=== PATIENT | male | born 1945 | race Two or more races ===

== ENCOUNTER 2016-08-14 12:45 | Inpatient (IN) | payer OTHER, MEDICAID ==
[~2016-08-14] VITALS: Ht 175.3 cm; Wt 101.2 kg
[2016-08-14 15:30] VITALS: BP 137/72
--- NOTE | 2016-08-14 15:45 | NUR ---
system developer associate manager Initial notes Admitted a 71 years old male patient from [facility] admit, patient came in due to hypoglycemia and PNA. Alert and Oriented x 4, verbally responsive and able to make needs known. IV on the right wrist and AC #20. On tele monitor a flutter heart rate of 75, no complaint of pain or discomfort at this time. Pictures taken and filed in the chart, skin assessment done. Informed Dr. Cheney regarding admission and orders filed in the chart. Vital signs checked and recorded. Kept patient clean and comfortable in bed, call light with in patient reach, will continue to monitor accordingly.
[2016-08-14 16:00] VITALS: BP 137/72
[2016-08-14] MEDS ORDERED: Z GUARD REMEDY 2 OZ OINT TP PRN (16:30)
[2016-08-14] MEDS ORDERED: ACETAMINOPHEN 325 MG TABLET PO PRN (16:30)
[2016-08-14] MEDS ORDERED: ZOLPIDEM TARTRATE 5 MG TABLET PO PRN (16:30)
[2016-08-14] MEDS ORDERED: ONDANSETRON HCL/PF 4 MG/2 ML VIAL IVP PRN (16:30)
[2016-08-14] MEDS ORDERED: CEFTRIAXONE 1 G in IV D5W 50 ML IV SCH (17:00)
[2016-08-14] MEDS ORDERED: AZITHROMYCIN 250 MG TABLET PO SCH (17:00)
[2016-08-14] MEDS ORDERED: DEXTROSE 50%-WATER 50 ML DISP.SYRIN IV PRN (17:30)
[2016-08-14] MEDS ORDERED: IV SET PRIMARY PUMP SET 1 EA INFUS.SET MC ONE (17:31)
[2016-08-14] MEDS ORDERED: SECONDARY IV SET 1 EA INFUS.SET MC ONE (17:33)
[2016-08-14] MEDS: IV NS 0.9% 1,000 ML IV PRN (17:37)
[2016-08-14] MEDS ORDERED: DIGO125T PO (17:43)
[2016-08-14] MEDS ORDERED: BACL10TA PO (17:43)
[2016-08-14] MEDS ORDERED: CARV6.252 PO (17:43)
[2016-08-14] MEDS ORDERED: WARF5TAB6 PO (17:43)
[2016-08-14] MEDS ORDERED: METF500T4 PO (17:43)
[2016-08-14] MEDS ORDERED: CILO100T PO (17:43)
[2016-08-14] MEDS ORDERED: GLIM2TAB2 PO (17:43)
[2016-08-14] MEDS ORDERED: GABA-534 PO (17:43)
[2016-08-14] MEDS ORDERED: ALBU8.5H2 IH (17:43)
[2016-08-14] MEDS ORDERED: PANT40TA4 PO (17:43)
[2016-08-14] MEDS ORDERED: TRAZ-144 PO (17:43)
[2016-08-14] MEDS ORDERED: CLOP75TA2 PO (17:43)
[2016-08-14] MEDS ORDERED: SIMV40TA5 PO (17:43)
[2016-08-14] MEDS ORDERED: LISI40TA4 PO (17:43)
[2016-08-14] MEDS ORDERED: FURO40TA5 PO (17:43)
[2016-08-14] MEDS: BLOOD SUGAR DIAGNOSTIC 1 EACH STRIP IN SCH ×2 (18:01→21:10)
--- NOTE | 2016-08-14 19:21 | NUR ---
electrical electronics engineer closing notes All needs provided, attended, and anticipated. kept patient clean and comfortable in bed, call light with in patient reach, will continue to monitor accordingly. Endorsed to next shift RN to continue care. On tele monitor Aflutter heart rate of 96.
[2016-08-14 20:00] VITALS: BP 155/66
--- NOTE | 2016-08-14 20:23 | NUR ---
MS/RN OPENING NOTES PATIENT IN BED, ALERT, ORIENTED X2. VERBALIZE NEEDS. REQUIRE ASSISTANCE AND FREQUENT MONITORING. PROVIDED WARM BLANKET AND KEPT RIOOM WARM AND DISCUSSED NEEDS FOR HOSPITALIZATION. WILL CONTINUE MONITORING.
--- NOTE | 2016-08-14 21:11 | NUR ---
MS/RN NOTES PATIENT WAS DISCUSSED REGARDING CARE AND BS CHECK AT 148. INFORMED THAT HE WILL HAVE ATB MEDICATIONS FOR HIS TREATMENT FOR PNA AND MD WILL COME AND SEE HIM RACH AM BUT STILL VERBALIZED " I WANT TO GO HOME AMS". INFORMED THE MATTER TO CHARGE NURSE . WILL CALL MD.
--- NOTE | 2016-08-14 21:20 | NUR ---
MS/RN NOTES PATIENT FAMILY WAS CONTACTED VIA VOICE MAIL LEFT MESSAGE FOR THEM TO RETURN CALL REGARDING PATIENT CONCERN. ([employer]([phone]) AND LYNETTE Dunham [phone]. PATIENT INFORMED AND VERBALIZED THE NEED TO GO BY 10 PM AND HAVE DISCUSSED AGAIN SAFETY CONCERNS. CHARGE NURSE/ NOTEMAN INFORMED. PATIENT WILLING TO SIGN AMA.
--- NOTE | 2016-08-14 21:33 | NUR ---
MS/RN NOTES PATIENT WAS INFORMED BY CHARGE NURSE THAT NO TRANSPORTATION CAN BE PROVIDED FOR HIM WHILE AMA UNTIL MD WILL CLEAR HIM FOR DISCHARGE AND REQUIRE EXTENSIVE ASSISTANCE WITH PEREZ. RESPONDED " I DONT HAVE NO CHOICE BUT TO STAY". REQUESTED FOR DIAPER CHANGE, WILL CONTINUE CARE.
--- NOTE | 2016-08-14 22:59 | NUR ---
ms/rn notes PATIENT REQUESTING FOR SLEEPING PILL. NOT ABLE TO SLEEP. MAGGI PO 5M TAB W/ ORDER PRN. WILL CHECK EFFECTIVENESS.
[2016-08-15] MEDS: IV NS 0.9% 1,000 ML IV PRN (04:01)
[2016-08-15] MEDS: BLOOD SUGAR DIAGNOSTIC 1 EACH STRIP IN SCH ×2 (06:33→12:33)
[2016-08-15 06:36] LABS: BASOPHILS % (AUTO) 0.4 % (0.0-2.0); EOSINOPHILS % (AUTO) 0.2 % (0.0-6.0); HEMATOCRIT 41 % (39-51); HEMOGLOBIN 13.7 g/dL (13.5-17.5); LYMPHOCYTES # (AUTO) 1.7 /CMM (0.8-4.8); LYMPHOCYTES % (AUTO) 18.7 % (20.0-44.0); MEAN CORPUSCULAR HEMOGLOBIN 32 PG (26.0-33.0); MEAN CORPUSCULAR HGB CONC 33 g/dl (31.0-36.0); MEAN CORPUSCULAR VOLUME 95 fL (80-96); MONOCYTES # (AUTO) 0.8 /CMM (0.1-1.30); MONOCYTES % (AUTO) 8.6 % (2.0-12.0); NEUTROPHILS # (AUTO) 6.4 /CMM (1.8-8.9); NEUTROPHILS % (AUTO) 72.1 % (43.0-81.0); PLATELET COUNT (AUTO) 185 /CMM (150-450); RDW COEFFICIENT OF VARIATION 17.6 (11.5-15.0); RED BLOOD CELL COUNT(AUTO) 4.31 MIL/uL (4.5-6.0); WHITE BLOOD COUNT (AUTO) 8.9 K/uL (4.3-11.0)
[2016-08-15 06:48] LABS: ALBUMIN 2.4 g/dL (3.4-5.0); BILIRUBIN,TOTAL 0.8 mg/dL (0.2-1.0); CALCIUM, SERUM 8.2 mg/dL (8.5-10.1); CREATININE 1.1 mg/dL (0.6-1.3); MAGNESIUM 1.8 mg/dL (1.8-2.4); PHOSPHORUS 2.4 mg/dL (2.5-4.9); POTASSIUM 4.2 mmol/L (3.5-5.1); TOTAL PROTEIN, SERUM 6.3 g/dL (6.4-8.2)
[2016-08-15 06:58] LABS: THYROID STIMULATING HORMONE 0.083 uIU/mL (0.358-3.74)
--- NOTE | 2016-08-15 07:10 | NUR ---
MS RN OPENING NOTES RECEIVED PT. FROM NIGHTSHIFT NURSE IN STABLE CONDITION. A/O X3. NO SOB OR SIGNS OF DISTRESS NOTED. BREATHING IS EVEN AND UNLABORED. PEREZ CATHETER IN PLACE AND DRAINING CLEAR YELLOW URINE. IV ON RIGHT WRIST 20G PATENT AND INTACT INFUSING NS @ 75 ML/HR. PT. TOLERATING INFUSION WELL. NO REDNESS OR SIGNS OF INFILTRATION NOTES. SECOND IV PRESENT ON RIGHT AC 20G , INTACT AND PATENT. BED IN LOW LOCKED POSITION, SIDE RAILS UP X3, CALL LIGHT WITHIN REACH. WILL CONTINUE TO MONITOR.
[2016-08-15 08:00] VITALS: BP_SYST 153; BP_SYST 161; BP_DIAS 70; BP_DIAS 74
[2016-08-15] MEDS ORDERED: CEPH-569 PO (11:54)
[2016-08-15] MEDS ORDERED: ALBUTEROL FS 2.5 MG/0.5 ML VIAL.NEB NEB PRN (12:00)
[2016-08-15] MEDS ORDERED: ALBUTEROL SULFATE 8 GM HFA.AER.AD IH PRN (12:00)
--- NOTE | 2016-08-15 16:11 | NUR ---
MS RN NOTES PT. LEFT UNIT IN STABLE CONDITION. PT. WAS WHEELED TO PRIVATE VEHICLE ACCOMPANIED BY ROXANN JIMENEZ ART CRITIC AND HIS CAREGIVERS. HE WAS SAFELY TRANSFERRED FROM WHEELCHAIR TO PRIVATE VEHICLE.
[2016-08-15] MEDS ORDERED: K PHOS NEUTRAL 250 MG TABLET PO ONE (16:30)
[2016-08-15] MEDS ORDERED: WARFARIN SODIUM 5 MG TABLET PO SCH (17:00)
[2016-08-15] MEDS ORDERED: CARVEDILOL 6.25 MG TABLET PO SCH (17:00)
[2016-08-15] MEDS ORDERED: GABAPENTIN 300 MG CAPSULE PO SCH (17:00)
[2016-08-15] MEDS ORDERED: CILOSTAZOL 100 MG TABLET PO SCH (17:00)
[2016-08-15] MEDS ORDERED: METFORMIN 500 MG TABLET PO SCH (17:00)
[2016-08-15] MEDS ORDERED: SIMVASTATIN 40 MG TABLET PO SCH (22:00)
[2016-08-15] MEDS ORDERED: TRAZODONE 50 MG TABLET PO SCH (22:00)
[2016-08-16] MEDS ORDERED: PANTOPRAZOLE 40 MG TABLET.DR PO SCH (07:30)
[2016-08-16] MEDS ORDERED: BACLOFEN (10 MG) 10 MG TABLET PO SCH (09:00)
[2016-08-16] MEDS ORDERED: CLOPIDOGREL BISULFATE 75 MG TABLET PO SCH (09:00)
[2016-08-16] MEDS ORDERED: LISINOPRIL (20MG) 20 MG TABLET PO SCH (09:00)
[2016-08-16] MEDS ORDERED: FUROSEMIDE 40 MG TABLET PO SCH (09:00)
[2016-08-16] MEDS ORDERED: DIGOXIN 0.125 MG TABLET PO SCH (13:00)
== END 2016-08-15 16:30 | disposition home or self-care (01) | DRG 639 ==
LOC: EDSEX 15:47 → MED 15:47
PROVIDERS: ADMIT Nurse Practitioner Acute Care; ATTEND Nurse Practitioner Acute Care
DX: E11.649 Type 2 diabetes mellitus with hypoglycemia without coma (principal); Z86.73 Personal history of transient ischemic attack (TIA), and cerebral infarction without residual deficits; I48.91 Unspecified atrial fibrillation; I10 Essential (primary) hypertension; E66.9 Obesity, unspecified; E11.65 Type 2 diabetes mellitus with hyperglycemia; T38.3X5A Adverse effect of insulin and oral hypoglycemic [antidiabetic] drugs, initial encounter; Z95.5 Presence of coronary angioplasty implant and graft
CPT/HCPCS: 36415; 80053-TC; 80061-TC; 82962-TC; 83735-TC; 84100-TC; 84443-TC; 85025-TC; 87081-TC; J0696; J7030; J7060; Z7610